=== PATIENT | female | born 1950 | race Two or more races ===

== ENCOUNTER 2025-02-23 18:59 | Emergency (ER) | payer MEDICARE ==
[~2025-02-23] VITALS: Ht 160 cm; Wt 62.6 kg
[2025-02-23 19:52] VITALS: TEMP 98.7
[2025-02-23] MEDS ORDERED: ONDANSETRON HCL/PF 4 MG/2 ML VIAL ONE (20:02)
[2025-02-23] MEDS: IV NS 0.9% 1,000 ML BAG IV ONE (20:14)
[2025-02-23] MEDS: ONDANSETRON HCL/PF 4 MG/2 ML VIAL IVP ONE (20:14)
[2025-02-23 20:26] LABS: PLATELET COUNT (AUTO) 305 K/uL (150-450); RED BLOOD CELL COUNT(AUTO) 5.47 MIL/uL (4.0-5.2); RED CELL DISTRIBUTION WIDTH 13.7 % (11.5-15.0); WHITE BLOOD COUNT (AUTO) 15.6 K/uL (4.3-11.0)
[2025-02-23 20:40] LABS: INR 0.98 (0.91-1.10)
[2025-02-23 20:43] LABS: LACTIC ACID 1.5 mmol/L (0.4-2.0)
[2025-02-23 20:52] LABS: CALCIUM, SERUM 9.0 mg/dL (8.5-10.1); CREATININE 1.1 mg/dL (0.6-1.3); SODIUM SERUM 141 mmol/L (136-145); UREA NITROGEN, BLOOD 21 mg/dL (7-18)
[2025-02-23 20:58] LABS: ASPARTATE AMINOTRANSFERASE 23 U/L (15-37); TOTAL PROTEIN, SERUM 7.6 g/dL (6.4-8.2)
[2025-02-23] MEDS: MORPHINE SULFATE INJ 2 MG/ML DISP.SYRIN IV ONE (21:17)
[2025-02-23] MEDS ORDERED: IV NS 0.9% 250 ML IV ONE (21:22)
[2025-02-23] MEDS ORDERED: IOHEXOL-300 100 ML VIAL IV ONE (21:22)
[2025-02-23] MEDS ORDERED: CT SWABBABLE VALVE TRANS SET 1 EA INFUS.SET MC ONE (21:22)
[2025-02-23 22:49] LABS: APPEARANCE,URINE CLEAR (CLEAR); BLOOD, URINE TRACE-INTA Ery/uL (NEGATIVE); LEUKOCYTE ESTERASE ,URINE TRACE (NEGATIVE); NITRITE, URINE NEGATIVE (NEGATIVE); UGLUCOSE NEGATIVE (NEGATIVE)
[2025-02-23 23:00] LABS: ADD URINE CULTURE NO; SQUAMOUS EPITHELIAL CELL,UR Few /HPF (None Seen)
[2025-02-23] MEDS ORDERED: ONDA4TAB5 PO (23:12)
[2025-02-23 23:19] VITALS: BP 124/78; O2SAT 97
== END 2025-02-23 23:20 | disposition home or self-care (01) ==
LOC: ER 19:08
DX: R10.31 Right lower quadrant pain (principal); R11.0 Nausea; R11.10 Vomiting, unspecified; R19.7 Diarrhea, unspecified; R94.31 Abnormal electrocardiogram [ECG] [EKG]; Z88.6 Allergy status to analgesic agent; Z90.710 Acquired absence of both cervix and uterus
CPT/HCPCS: 36415; 71045-TC; 80048-TC; 80076-TC; 81001; 83605-TC; 83690-TC; 83735-TC; 84484-TC; 85025-TC; 85730-TC; J2405; J7030; J7050; Q9967